=== PATIENT | male | born 1970 | race Caucasian/White ===

== ENCOUNTER 2019-10-17 08:54 | Emergency (ER) | payer MEDICAID ==
[2019-10-17] MEDS ORDERED: Bacitracin Oint 1 GM U/D Packet TOP ONE (09:13)
[2019-10-17] MEDS ORDERED: Lidocaine 1% 20 ML MDV INJECT ONE (09:13)
--- NOTE | 2019-10-17 09:16 | EDM.PDOC ---
ED HPI GENERAL MEDICAL PROBLEM - General Chief Complaint: Laceration Stated Complaint: right hand cut Time Seen by Provider: 10/17/19 09:15 Source of Information: Reports: Patient History Limitations: Reports: No Limitations - History of Present Illness INITIAL COMMENTS - FREE TEXT/NARRATIVE: pt was washing dishes and has a laceration on his rt 5th knuckle. Onset: Today, Sudden Duration: Hour(s): Location: Reports: Upper Extremity, Right Associated Symptoms: Reports: No Other Symptoms - Related Data Allergies Allergy/AdvReac Type Severity Reaction Status Date / Time No Known Allergies Allergy Verified 10/17/19 09:09 Home Meds: Home Meds Albuterol [Proventil HFA] 1 puff INH ASDIRECTED 10/17/19 [History] lisinopriL [Lisinopril] 20 mg PO DAILY 10/17/19 [History] Past Medical History Cardiovascular History: Reports: Hypertension - Past Surgical History HEENT Surgical History: Reports: Naso-Sinus Surgery Musculoskeletal Surgical History: Reports: Shoulder Surgery Social & Family History - Tobacco Use Smoking Status *Q: Never Smoker - Caffeine Use Caffeine Use: Reports: Soda - Recreational Drug Use Recreational Drug Use: Yes Drug Use in Last 12 Months: Yes Recreational Drug Type: Reports: Methamphetamine Other Recreational Drug Type: last used March 01 Recreational Drug Use Frequency: Not Used In Over 6 Months ED ROS GENERAL - Review of Systems Review Of Systems: See Below Constitutional: Reports: No Symptoms HEENT: Reports: No Symptoms Respiratory: Reports: No Symptoms Cardiovascular: Reports: No Symptoms Endocrine: Reports: No Symptoms GI/Abdominal: Reports: No Symptoms : Reports: No Symptoms Musculoskeletal: Reports: Other (laceration on the rt hand. ) Skin: Reports: No Symptoms Neurological: Reports: No Symptoms ED EXAM, SKIN/RASH Exam: See Below Text/Narrative:: pt has a 2 inch laceration on the dorsal aspect of the 5th rt knuckle. This is a flap type laceration. He was washing doshes and cut it on a glass. Exam Limited By: No Limitations General Appearance: Alert, Anxious, Moderate Distress Extremities: Other (pt has a 2 inch laceration on the dorsal portion of the rt 5th knuckle. He has nornal motion and normal sensation. The area was cleansed well and infiltrated with lidocaine. The wound was explored and his tendon was intact. He was nauseated and felt like he was going to pass out. He had o2 added. He is current with his tetanus. The wound was closed with 5-0 chromic and 5-0 prolene. . It was dressed with bacatracin. He had a pressure dressing was applied. ) Course - Vital Signs Last Recorded V/S: Last Vital Signs Temp 36.7 C 10/17/19 09:07 Pulse 68 10/17/19 09:07 Resp 20 10/17/19 09:07 BP 140/96 H 10/17/19 09:07 Pulse Ox 96 10/17/19 09:07 - Orders/Labs/Meds Meds: Medications Discontinued Medications Generic Name Dose Route Start Last Admin Trade Name Freq PRN Reason Stop Dose Admin Bacitracin 1 dose 10/17/19 09:13 10/17/19 09:53 Bacitracin Oint 1 Gm TOP 10/17/19 09:14 1 dose ONETIME ONE Administration Lidocaine HCl 20 ml 10/17/19 09:13 10/17/19 09:53 Xylocaine 1% INJECT 10/17/19 09:14 20 ml ONETIME ONE Administration Departure - Departure Time of Disposition: 09:53 Disposition: Home, Self-Care 01 Condition: Fair Clinical Impression: Laceration - Discharge Information Instructions: Laceration Care, Adult, [id number] Referrals: PCP,None [Primary Care Provider] - Forms: ED Department Discharge Care Plan Goals: keep dry, no further ointments, keep covered suture removal in 7-8 days. Sepsis Event Note - Evaluation Sepsis Screening Result: No Definite Risk - Focused Exam Date Exam was Performed: 10/22/19 Time Exam was Performed: 08:12
== END 2019-10-17 10:10 | disposition home or self-care (01) ==
LOC: JP.ED 08:54
DX: S61.216A Laceration without foreign body of right little finger without damage to nail, initial encounter (principal); W45.8XXA Other foreign body or object entering through skin, initial encounter; I10 Essential (primary) hypertension; Z79.899 Other long term (current) drug therapy
CPT/HCPCS: 12002; 99282; J2001

== ENCOUNTER 2020-02-20 15:52 | Emergency (ER) | payer MEDICAID ==
[2020-02-20] MEDS ORDERED: Lactated Ringers 1,000 ML IV ONE (16:24)
[2020-02-20] MEDS ORDERED: Midazolam 1 MG/ML 2 ML SDV IVPUSH ONE (16:29)
--- NOTE | 2020-02-20 16:35 | EDM.PDOC ---
ED HPI GENERAL MEDICAL PROBLEM - General Chief Complaint: General Stated Complaint: MEDICAL VIA [facility] Time Seen by Provider: 02/20/20 16:25 Source of Information: Reports: EMS History Limitations: Reports: Altered Mental Status, Other (patient unresponsive , no one at residence to provider hx) - History of Present Illness INITIAL COMMENTS - FREE TEXT/NARRATIVE: 49 yo male found unresponsive, naked and cold on a wet floor of the residence he was at. Someone called 911, but when EMS arrived they saw a man running away from the building. Vitals were OK and his BS was just over 200 per EMS. The home he was found in is known to a "meth house". It is not known how long he was on the floor. 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 (see below) (none) - Related Data Allergies Allergy/AdvReac Type Severity Reaction Status Date / Time No Known Allergies Allergy Verified 10/17/19 09:09 Home Meds: Home Meds Albuterol [Proventil HFA] 1 - 2 puff INH Q4H PRN 10/17/19 [History] lisinopriL [Lisinopril] 20 mg PO DAILY 10/17/19 [History] Past Medical History Cardiovascular History: Reports: Hypertension - Past Surgical History HEENT Surgical History: Reports: Naso-Sinus Surgery Musculoskeletal Surgical History: Reports: Shoulder Surgery Social & Family History - Caffeine Use Caffeine Use: Reports: Soda ED ROS GENERAL - Review of Systems Review Of Systems: Unable To Obtain Reason Not Obtained: patient is nonverbal ED EXAM, GENERAL - Physical Exam Exam: See Below Exam Limited By: No Limitations General Appearance: Moderate Distress, Other (nonverbal) Eye Exam: Bilateral Eye: Normal Inspection, PERRL Ears: Normal External Exam, Normal Canal, Hearing Grossly Normal, Normal TMs Ear Exam: Bilateral Ear: Auricle Normal, Canal Normal, TM normal Nose: Normal Inspection, No Blood Throat/Mouth: Normal Inspection, Normal Lips, Normal Oropharynx, No Airway Compromise. No: Normal Voice (nonverbal) Head: Atraumatic, Normocephalic Neck: Normal Inspection Respiratory/Chest: No Respiratory Distress, Lungs Clear, Normal Breath Sounds, No Accessory Muscle Use Cardiovascular: Regular Rate, Rhythm, No Edema, Tachycardia GI/Abdominal: Normal Bowel Sounds, Soft, Non-Tender, No Distention Extremities: Normal Inspection, No Pedal Edema. No: Pedal Edema, Limited Range of Motion, Increased Warmth, Redness Neurological: Unresponsive, Other (doesn't seem to move his R side. Does not look to his R., Glascow Coma scale of 6). No: Normal Cognition Skin Exam: Dry, Intact, Normal Color, No Rash, Cool. No: Warm, Diaphoretic, Ecchymosis, Erythema, Increased Warmth, Jaundice, Lymphangitis, Petechiae, Rash , Wound/Incision, Zoster-Like Rash Course - Vital Signs Last Recorded V/S: Last Vital Signs Temp 34.8 C L 02/20/20 17:39 Pulse 144 H 02/20/20 17:35 Resp 47 H 02/20/20 17:35 BP 113/92 H 02/20/20 17:35 Pulse Ox 99 02/20/20 17:35 - Orders/Labs/Meds Orders: Active Orders 24 hr Category Date Time Status Cardiac Monitoring [RC] .As Directed Care 02/20/20 16:27 Active EKG Documentation Completion [RC] ASDIRECTED Care 02/20/20 16:36 Active Knowles Catheter Insertion [Insert Urinary Catheter] [OM. Care 02/20/20 16:30 Ordered PC] Q24H Urinary Catheter Assessment [RC] ASDIRECTED Care 02/20/20 16:25 Active Warming Measures [Cooling Warming Measures] [RC] Care 02/20/20 16:26 Active ASDIRECTED Chest 1V Frontal [CR] Stat Exams 02/20/20 17:36 Taken Chest 1V Frontal [CR] Stat Exams 02/20/20 17:46 Taken Chest 1V Frontal [CR] Stat Exams 02/20/20 17:47 Taken Diltiazem [Cardizem] 100 mg Med 02/20/20 17:15 Active Sodium Chloride 0.9% [Normal Saline] 100 ml IV TITRATE Fosphenytoin [Cerebyx] 1,500 mg.pe Med 02/20/20 17:29 Active Sodium Chloride 0.9% [Normal Saline] 50 ml IV NOW NS + KCl 20mEq/L [Normal Saline with 20 mEq KCl] 1,000 Med 02/20/20 17:45 Active ml IV ASDIRECTED Potassium Chloride [KCL 20 MEQ in Water 100 ML] 20 meq Med 02/20/20 17:11 Active Premix Bag 1 bag IV ONETIME EKG 12 Lead [EK] Routine Ther 02/20/20 16:35 Ordered Medication Orders Diltiazem HCl 100 mg/ Sodium (Chloride) 100 mls @ 5 mls/hr IV TITRATE MOISE; Protocol Last Admin: 02/20/20 17:28 Dose: 5 mg/hr, 5 mls/hr Potassium Chloride 20 meq/ (Premix) 100 mls @ 50 mls/hr IV ONETIME ONE Stop: 02/20/20 19:10 Last Admin: 02/20/20 17:29 Dose: 50 mls/hr Fosphenytoin Sodium 1,500 mg. (pe/ Sodium Chloride) 80 mls @ 150 mls/hr IV NOW ONE Stop: 02/20/20 17:56 Potassium Chloride/Sodium Chloride (Normal Saline With 20 Meq Kcl) 1,000 mls @ 500 mls/hr IV ASDIRECTED MOISE Labs: Laboratory Tests 02/20/20 02/20/20 02/20/20 Range/Units 16:27 16:27 16:35 WBC 23.6 H (4.5-11.0) K/uL RBC 6.57 H (4.30-5.90) M/uL Hgb 18.9 H* (12.0-15.0) g/dL Hct 56.8 H (40.0-54.0) % MCV 87 (80-98) fL MCH 29 (27-31) pg MCHC 33 (32-36) % Plt Count 373 (150-400) K/uL Puncture Site ABG pH (7.350-7.450) ABG pCO2 (35.0-42.0) mmHg ABG pO2 (75.0-100.0) mmHg ABG HCO3 (22.0-26.0) mmol/L ABG Total CO2 (23.0-27.0) mmol/L ABG O2 Saturation (95.0-98.0) % ABG O2 Content (15.0-23.0) %vol ABG Base Excess mm/L ABG Hemoglobin (13.5-18.0) g/dL ABG Oxyhemoglobin % ABG Carboxyhemoglobin (0.0-1.6) % ABG Methemoglobin % Eduardo Test O2 Delivery Device Oxygen Flow Rate L Sodium (140-148) mmol/L Potassium (3.6-5.2) mmol/L Chloride (100-108) mmol/L Carbon Dioxide (21-32) mmol/L Anion Gap (5.0-14.0) mmol/L BUN (7-18) mg/dL Creatinine (0.8-1.3) mg/dL Est Cr Clr Drug Dosing Estimated GFR (MDRD) (>60) Glucose (74-106) mg/dL Lactic Acid (0.4-2.0) mmol/L Calcium (8.5-10.1) mg/dL Magnesium (1.8-2.4) mg/dL Total Bilirubin (0.2-1.0) mg/dL AST (15-37) U/L ALT (12-78) U/L Alkaline Phosphatase (46-116) U/L Creatine Kinase (39-308) U/L Troponin I (0.000-0.056) ng/mL Total Protein (6.4-8.2) g/dL Albumin (3.4-5.0) g/dL Globulin (2.3-3.5) g/dL Albumin/Globulin Ratio (1.2-2.2) Urine Color Yellow (YELLOW) Urine Appearance Slightly cloudy A (CLEAR) Urine pH 8.5 H (5.0-8.0) Ur Specific [place] 1.020 (1.008-1.030) Urine Protein 100 H (NEGATIVE) mg/dL Urine Glucose (UA) Negative (NEGATIVE) mg/dL Urine Ketones Negative (NEGATIVE) mg/dL Urine Occult Blood Trace-intact H (NEGATIVE) Urine Nitrite Negative (NEGATIVE) Urine Bilirubin Negative (NEGATIVE) Urine Urobilinogen 0.2 (0.2-1.0) EU/dL Ur Leukocyte Esterase Negative (NEGATIVE) Urine RBC 0-5 (0-5) Urine WBC 0-5 (0-5) Ur Epithelial Cells Rare Amorphous Sediment Moderate Urine Bacteria Not seen Urine Mucus Not seen Urine Other Urine Opiates Screen Negative (NEGATIVE) Ur Oxycodone Screen Negative (NEGATIVE) Urine Methadone Screen Negative (NEGATIVE) Ur Propoxyphene Screen Negative (NEGATIVE) Ur Barbiturates Screen Negative (NEGATIVE) Ur Tricyclics Screen Negative (NEGATIVE) Ur Phencyclidine Scrn Negative (NEGATIVE) Ur Amphetamine Screen Presumptive positive H (NEGATIVE) U Methamphetamines Scrn Presumptive positive H (NEGATIVE) Urine MDMA Screen Negative (NEGATIVE) U Benzodiazepines Scrn Negative (NEGATIVE) U Cocaine Metab Screen Negative (NEGATIVE) U Marijuana (THC) Screen Presumptive positive H (NEGATIVE) Ethyl Alcohol mg/dL 02/20/20 02/20/20 02/20/20 Range/Units 16:35 16:35 16:35 WBC (4.5-11.0) K/uL RBC (4.30-5.90) M/uL Hgb (12.0-15.0) g/dL Hct (40.0-54.0) % MCV (80-98) fL MCH (27-31) pg MCHC (32-36) % Plt Count (150-400) K/uL Puncture Site ABG pH (7.350-7.450) ABG pCO2 (35.0-42.0) mmHg ABG pO2 (75.0-100.0) mmHg ABG HCO3 (22.0-26.0) mmol/L ABG Total CO2 (23.0-27.0) mmol/L ABG O2 Saturation (95.0-98.0) % ABG O2 Content (15.0-23.0) %vol ABG Base Excess mm/L ABG Hemoglobin (13.5-18.0) g/dL ABG Oxyhemoglobin % ABG Carboxyhemoglobin (0.0-1.6) % ABG Methemoglobin % Eduardo Test O2 Delivery Device Oxygen Flow Rate L Sodium 169 H* (140-148) mmol/L Potassium 2.6 L* (3.6-5.2) mmol/L Chloride 110 H (100-108) mmol/L Carbon Dioxide > 45 H (21-32) mmol/L Anion Gap 16.6 H (5.0-14.0) mmol/L BUN 23 H (7-18) mg/dL Creatinine 2.4 H (0.8-1.3) mg/dL Est Cr Clr Drug Dosing TNP Estimated GFR (MDRD) 29 L (>60) Glucose 391 H (74-106) mg/dL Lactic Acid (0.4-2.0) mmol/L Calcium 10.0 (8.5-10.1) mg/dL Magnesium (1.8-2.4) mg/dL Total Bilirubin 0.6 (0.2-1.0) mg/dL AST 30 (15-37) U/L ALT 52 (12-78) U/L Alkaline Phosphatase 91 (46-116) U/L Creatine Kinase 233 (39-308) U/L Troponin I < 0.017 (0.000-0.056) ng/mL Total Protein 8.7 H (6.4-8.2) g/dL Albumin 4.4 (3.4-5.0) g/dL Globulin 4.3 H (2.3-3.5) g/dL Albumin/Globulin Ratio 1.0 L (1.2-2.2) Urine Color (YELLOW) Urine Appearance (CLEAR) Urine pH (5.0-8.0) Ur Specific [place] (1.008-1.030) Urine Protein (NEGATIVE) mg/dL Urine Glucose (UA) (NEGATIVE) mg/dL Urine Ketones (NEGATIVE) mg/dL Urine Occult Blood (NEGATIVE) Urine Nitrite (NEGATIVE) Urine Bilirubin (NEGATIVE) Urine Urobilinogen (0.2-1.0) EU/dL Ur Leukocyte Esterase (NEGATIVE) Urine RBC (0-5) Urine WBC (0-5) Ur Epithelial Cells Amorphous Sediment Urine Bacteria Urine Mucus Urine Other Urine Opiates Screen (NEGATIVE) Ur Oxycodone Screen (NEGATIVE) Urine Methadone Screen (NEGATIVE) Ur Propoxyphene Screen (NEGATIVE) Ur Barbiturates Screen (NEGATIVE) Ur Tricyclics Screen (NEGATIVE) Ur Phencyclidine Scrn (NEGATIVE) Ur Amphetamine Screen (NEGATIVE) U Methamphetamines Scrn (NEGATIVE) Urine MDMA Screen (NEGATIVE) U Benzodiazepines Scrn (NEGATIVE) U Cocaine Metab Screen (NEGATIVE) U Marijuana (THC) Screen (NEGATIVE) Ethyl Alcohol < 3 mg/dL 02/20/20 02/20/20 02/20/20 Range/Units 16:35 16:44 17:52 WBC (4.5-11.0) K/uL RBC (4.30-5.90) M/uL Hgb (12.0-15.0) g/dL Hct (40.0-54.0) % MCV (80-98) fL MCH (27-31) pg MCHC (32-36) % Plt Count (150-400) K/uL Puncture Site Lt brachial ABG pH 7.475 H (7.350-7.450) ABG pCO2 62.1 H (35.0-42.0) mmHg ABG pO2 399.0 H (75.0-100.0) mmHg ABG HCO3 45.2 H (22.0-26.0) mmol/L ABG Total CO2 36.3 H (23.0-27.0) mmol/L ABG O2 Saturation 99.8 H (95.0-98.0) % ABG O2 Content 27.2 H (15.0-23.0) %vol ABG Base Excess 16.6 mm/L ABG Hemoglobin 19.0 H (13.5-18.0) g/dL ABG Oxyhemoglobin 98.4 % ABG Carboxyhemoglobin 0.7 (0.0-1.6) % ABG Methemoglobin 0.7 % Eduardo Test N/a O2 Delivery Device Resuscitation bag Oxygen Flow Rate 15.0 L Sodium (140-148) mmol/L Potassium (3.6-5.2) mmol/L Chloride (100-108) mmol/L Carbon Dioxide (21-32) mmol/L Anion Gap (5.0-14.0) mmol/L BUN (7-18) mg/dL Creatinine (0.8-1.3) mg/dL Est Cr Clr Drug Dosing Estimated GFR (MDRD) (>60) Glucose (74-106) mg/dL Lactic Acid 8.6 H (0.4-2.0) mmol/L Calcium (8.5-10.1) mg/dL Magnesium 3.1 H (1.8-2.4) mg/dL Total Bilirubin (0.2-1.0) mg/dL AST (15-37) U/L ALT (12-78) U/L Alkaline Phosphatase (46-116) U/L Creatine Kinase (39-308) U/L Troponin I (0.000-0.056) ng/mL Total Protein (6.4-8.2) g/dL Albumin (3.4-5.0) g/dL Globulin (2.3-3.5) g/dL Albumin/Globulin Ratio (1.2-2.2) Urine Color (YELLOW) Urine Appearance (CLEAR) Urine pH (5.0-8.0) Ur Specific [place] (1.008-1.030) Urine Protein (NEGATIVE) mg/dL Urine Glucose (UA) (NEGATIVE) mg/dL Urine Ketones (NEGATIVE) mg/dL Urine Occult Blood (NEGATIVE) Urine Nitrite (NEGATIVE) Urine Bilirubin (NEGATIVE) Urine Urobilinogen (0.2-1.0) EU/dL Ur Leukocyte Esterase (NEGATIVE) Urine RBC (0-5) Urine WBC (0-5) Ur Epithelial Cells Amorphous Sediment Urine Bacteria Urine Mucus Urine Other Urine Opiates Screen (NEGATIVE) Ur Oxycodone Screen (NEGATIVE) Urine Methadone Screen (NEGATIVE) Ur Propoxyphene Screen (NEGATIVE) Ur Barbiturates Screen (NEGATIVE) Ur Tricyclics Screen (NEGATIVE) Ur Phencyclidine Scrn (NEGATIVE) Ur Amphetamine Screen (NEGATIVE) U Methamphetamines Scrn (NEGATIVE) Urine MDMA Screen (NEGATIVE) U Benzodiazepines Scrn (NEGATIVE) U Cocaine Metab Screen (NEGATIVE) U Marijuana (THC) Screen (NEGATIVE) Ethyl Alcohol mg/dL Meds: Medications Generic Name Dose Route Start Last Admin Trade Name Freq PRN Reason Stop Dose Admin Diltiazem HCl 100 mg/ Sodium 100 mls @ 5 mls/hr 02/20/20 17:15 02/20/20 17:28 Chloride IV 5 mg/hr TITRATE MOISE 5 mls/hr Administration Protocol 5 MG/HR Potassium Chloride 20 meq/ 100 mls @ 50 mls/hr 02/20/20 17:11 02/20/20 17:29 Premix IV 02/20/20 19:10 50 mls/hr ONETIME ONE Administration Fosphenytoin Sodium 1,500 mg. 80 mls @ 150 mls/hr 02/20/20 17:29 pe/ Sodium Chloride IV 02/20/20 17:56 NOW ONE Potassium Chloride/Sodium Chloride 1,000 mls @ 500 mls/hr 02/20/20 17:45 Normal Saline With 20 Meq Kcl IV ASDIRECTED MOISE Discontinued Medications Generic Name Dose Route Start Last Admin Trade Name Freq PRN Reason Stop Dose Admin Adenosine 6 mg 02/20/20 16:46 02/20/20 16:52 Adenocard IVPUSH 02/20/20 16:47 6 mg NOW ONE Administration Adenosine 12 mg 02/20/20 16:55 02/20/20 16:58 Adenocard IVPUSH 02/20/20 16:56 12 mg NOW ONE Administration Diltiazem HCl 20 mg 02/20/20 17:00 02/20/20 17:05 Diltiazem IVPUSH 02/20/20 17:01 20 mg ONETIME ONE Administration Diltiazem HCl 20 mg 02/20/20 17:42 02/20/20 17:47 Diltiazem IVPUSH 02/20/20 17:43 20 mg ONETIME ONE Administration Fosphenytoin Sodium Confirm 02/20/20 17:39 Cerebyx Administered 02/20/20 17:40 Dose 500 mg.pe .ROUTE .STK-MED ONE Lactated Ringer's 1,000 mls @ 1,000 mls/hr 02/20/20 16:24 02/20/20 16:20 Ringers, Lactated IV 02/20/20 17:23 1,000 mls/hr BOLUS ONE Administration Lorazepam 2 mg 02/20/20 17:17 02/20/20 17:21 Ativan IVPUSH 02/20/20 17:18 2 mg ONETIME ONE Administration Lorazepam Confirm 02/20/20 17:19 Ativan Administered 02/20/20 17:20 Dose 2 mg .ROUTE .STK-MED ONE Midazolam HCl 4 mg 02/20/20 16:29 02/20/20 16:35 Versed 1 Mg/Ml IVPUSH 02/20/20 16:30 4 mg ONETIME ONE Administration - Radiology Interpretation Free Text/Narrative:: Head CT scan without contrast- IMPRESSION: Acute subarachnoid hemorrhage mostly concentrated in the posterior fossa. Results discussed with Dr. Friedman at 1655 hours. Dictated by Afshin Gomez MD @ 02/20/2020 4:55:27 PM Chest X-ray- CT Results Date: 02/20/20 CT Results Time: 16:55 - Re-Assessments/Exams Free Text/Narrative Re-Assessment/Exam: 02/20/20 17:01 Adenocard 6 mg IV did nothing, 12 mg IV push converted his rhythm to a sinus rhythm for a few seconds only then he converted right back into a rhythm that looked like SVT. Free Text/Narrative Re-Assessment/Exam: 02/20/20 17:[address] [facility] called for transport. Anesthesia called to intubate for the transfer. Free Text/Narrative Re-Assessment/Exam: 02/20/20 17:32 Insufficient benefit with Ativan 2 mg IV for seizure, will give fosphenytoin 1500 mg IV. 02/20/20 17:41 Intubation per anesthesia with sux and propofol Departure - Departure Time of Disposition: 18:00 Disposition: DC/Tfer to [facility] 02 Clinical Impression: Subarachnoid hemorrhage, Methamphetamine use, Marijuana use, Polycythemia, Hypokalemia, Supraventricular tachycardia, Seferino-Garcia breathing, Hypernatremia, Seizure, Elevated lactic acid level Hypothermia Qualifiers: Encounter type: initial encounter Qualified Code(s): T68.XXXA - Hypothermia, initial encounter - Discharge Information *PRESCRIPTION DRUG MONITORING PROGRAM REVIEWED*: No *COPY OF PRESCRIPTION DRUG MONITORING REPORT IN PATIENT NIDA: No Referrals: PCP,None [Primary Care Provider] - Forms: ED Department Discharge Sepsis Event Note - Focused Exam Vital Signs: Vital Signs Temp Pulse Resp BP Pulse Ox 02/20/20 17:39 34.8 C L 02/20/20 17:35 144 H 47 H 113/92 H 99 02/20/20 17:21 36.3 C 149 H 49 H 105/86 80 L 02/20/20 17:15 99 15 115/64 93 L 02/20/20 17:05 175 H 26 H 120/66 86 L 02/20/20 16:59 183 H 34 H 111/68 92 L 02/20/20 16:34 203 H 31 H 121/83 91 L 02/20/20 16:18 172 H 36 H 132/98 H 94 L 02/20/20 16:05 34.0 C L 183 H 34 H 111/68 86 L 02/20/20 16:02 34.0 C L 136 H 28 H 143/100 H 91 L Date Exam was Performed: 02/20/20 Time Exam was Performed: 17:55 - My Orders Last 24 Hours: My Active Orders 02/20/20 16:25 Urinary Catheter Assessment [RC] ASDIRECTED 02/20/20 16:26 Warming Measures [Cooling Warming Measures] [RC] ASDIRECTED 02/20/20 16:27 Cardiac Monitoring [RC] .As Directed 02/20/20 16:30 Knowles Catheter Insertion [Insert Urinary Catheter] [OM.PC] Q24H 02/20/20 16:35 EKG 12 Lead [EK] Routine 02/20/20 16:36 EKG Documentation Completion [RC] ASDIRECTED 02/20/20 17:11 Potassium Chloride [KCL 20 MEQ in Water 100 ML] 20 meq Premix Bag 1 bag IV ONETIME 02/20/20 17:15 Diltiazem [Cardizem] 100 mg Sodium Chloride 0.9% [Normal Saline] 100 ml IV TITRATE 02/20/20 17:29 Fosphenytoin [Cerebyx] 1,500 mg.pe Sodium Chloride 0.9% [Normal Saline] 50 ml IV NOW 02/20/20 17:36 Chest 1V Frontal [CR] Stat 02/20/20 17:45 NS + KCl 20mEq/L [Normal Saline with 20 mEq KCl] 1,000 ml IV ASDIRECTED 02/20/20 17:46 Chest 1V Frontal [CR] Stat 02/20/20 17:47 Chest 1V Frontal [CR] Stat - Assessment/Plan Last 24 Hours: My Active Orders 02/20/20 16:25 Urinary Catheter Assessment [RC] ASDIRECTED 02/20/20 16:26 Warming Measures [Cooling Warming Measures] [RC] ASDIRECTED 02/20/20 16:27 Cardiac Monitoring [RC] .As Directed 02/20/20 16:30 Knowles Catheter Insertion [Insert Urinary Catheter] [OM.PC] Q24H 02/20/20 16:35 EKG 12 Lead [EK] Routine 02/20/20 16:36 EKG Documentation Completion [RC] ASDIRECTED 02/20/20 17:11 Potassium Chloride [KCL 20 MEQ in Water 100 ML] 20 meq Premix Bag 1 bag IV ONETIME 02/20/20 17:15 Diltiazem [Cardizem] 100 mg Sodium Chloride 0.9% [Normal Saline] 100 ml IV TITRATE 02/20/20 17:29 Fosphenytoin [Cerebyx] 1,500 mg.pe Sodium Chloride 0.9% [Normal Saline] 50 ml IV NOW 02/20/20 17:36 Chest 1V Frontal [CR] Stat 02/20/20 17:45 NS + KCl 20mEq/L [Normal Saline with 20 mEq KCl] 1,000 ml IV ASDIRECTED 02/20/20 17:46 Chest 1V Frontal [CR] Stat 02/20/20 17:47 Chest 1V Frontal [CR] Stat
[2020-02-20] MEDS ORDERED: Adenosine 6 MG/2 ML SDV IVPUSH ONE ×2 (16:46→16:55)
--- NOTE | 2020-02-20 16:55 | CRLCT ---
INDICATION: Right-sided paralysis. Possible CVA. TECHNIQUE: CT head without contrast. COMPARISON: None. FINDINGS: CSF spaces: No hydrocephalus. Brain parenchyma and extra-axial spaces: There is a fair amount of acute subarachnoid hemorrhage concentrated in the posterior fossa but also present in the supratentorial sulci bilaterally. Hemorrhage also extends into the 4th ventricle. No significant mass effect and no midline shift. Skull base and calvarium: The visualized paranasal sinuses and mastoid air cells demonstrate no acute or significant findings. The visualized orbits are grossly unremarkable. No skull fractures. IMPRESSION: Acute subarachnoid hemorrhage mostly concentrated in the posterior fossa. Results discussed with Dr. Friedman at 1655 hours. Dictated by Afshin Gomez MD @ 02/20/2020 4:55:27 PM Please note that all CT scans at this facility use dose modulation, iterative reconstruction, and/or weight-based dosing when appropriate to reduce radiation dose to as low as reasonably achievable. Dictated by: Afshin Gomez MD @ 02/20/2020 16:55:33 (Electronically Signed)
[2020-02-20] MEDS ORDERED: Diltiazem 25 MG/5 ML SDV IVPUSH ONE ×2 (17:00→17:42)
[2020-02-20] MEDS ORDERED: Potassium Chloride 20 MEQ in Premix Bag 1 BAG IV ONE (17:11)
[2020-02-20] MEDS ORDERED: Diltiazem 100 MG in Sodium Chloride 0.9% 100 ML IV SCH (17:15)
[2020-02-20] MEDS ORDERED: LORazepam 2 MG/ML SDV IVPUSH ONE (17:17)
[2020-02-20] MEDS ORDERED: LORazepam 2 MG/ML SDV ONE (17:19)
[2020-02-20] MEDS ORDERED: Fosphenytoin 1,500 MG.PE in Sodium Chloride 0.9% 50 ML IV ONE (17:29)
[2020-02-20] MEDS ORDERED: Fosphenytoin 500 MG.PE/10 ML SDV ONE (17:39)
[2020-02-20] MEDS ORDERED: NS + KCl 20mEq/L 1,000 ML IV SCH (17:45)
[2020-02-20] MEDS ORDERED: Propofol 200 MG/20 ML SDV ONE (18:01)
[2020-02-20] MEDS ORDERED: Succinylcholine 200 MG/10 ML MDV ONE (18:01)
--- NOTE | 2020-02-20 19:49 | ANES ---
DATE OF SERVICE: 02/20/2020 PROCEDURE: Emergency intubation. TECHNIQUE: I was called in this evening by the ER for a gentleman needing emergent intubation. I was at the bedside at approximately 17:30. The patient was unresponsive and having active seizure activity. Heart rate was noted to be in the 190, blood pressure systolically was in the 100s, O2 saturation was approximately 93% to 94% on a non-rebreather mask at about 10 L. Medications were gathered. Equipment was gathered. Prior to induction with medications, I did start ambuing the patient with bag-valve mask at 10 L a minute of oxygen. I then proceeded to give the patient 130 mg of propofol and 100 mg of succinylcholine to get rid of the seizure activity and to loosen his masseter rigidity. Continued to bag the patient through the induction. Shortly after medications were given, I was able to intubate the patient using a MAC 3 blade and placed an 8.0 endotracheal tube without difficulty. Grade 1 view of the cords was noted. No signs of aspiration noted on intubation either. Positive end-tidal CO2 was noted immediately after intubation. Bilateral breath sounds was also noted. ET tube was then secured at approximately 23 at the lip. Chest x-ray was also done and confirmed to be about a centimeter to above the salome. Continued to Ambu the patient until was at the bedside. Systolic pressures did tolerate propofol with his systolic being high 80s over 50s. Heart rate continued to be anywhere from 170 to 190. O2 saturation was 100% immediately after intubation. The patient will be transferred out. Derrick Saeed CRNA /[id number]
--- NOTE | 2020-02-21 10:08 | CR ---
CHEST: Portable 02/20/2020 at 5:46 PM CLINICAL HISTORY:Intubation COMPARISON:None FINDINGS: There is an endotracheal tube in the proximal right mainstem bronchus. Both lungs appear well aerated. Heart size and pulmonary vascularity are normal Impression: Endotracheal tube in the right mainstem bronchus Lungs are clear.
--- NOTE | 2020-02-21 10:11 | CR ---
CHEST: Portable 02/20/2020 at 0547:12 CLINICAL HISTORY:Intubation COMPARISON:Earlier same day FINDINGS: Endotracheal tube is been withdrawn into the distal trachea. It is approximately 1 cm from the salome. Lungs are well aerated. IMPRESSION: Endotracheal tube is been withdrawn into the distal trachea. CHEST: Portable 02/20/2020 at 0547:53 CLINICAL HISTORY:Endotracheal tube placement COMPARISON:Earlier same day FINDINGS: The endotracheal tube is been withdrawn further into the distal trachea. The there is approximately 1.5 cm from the salome. IMPRESSION: Endotracheal tube adjustment as above. Lungs are clear .
== END 2020-02-20 18:32 ==
LOC: JP.ED 15:52
DX: S06.6X9A Traumatic subarachnoid hemorrhage with loss of consciousness of unspecified duration, initial encounter (principal); T68.XXXA Hypothermia, initial encounter; F15.90 Other stimulant use, unspecified, uncomplicated; F12.90 Cannabis use, unspecified, uncomplicated; E87.6 Hypokalemia; R56.9 Unspecified convulsions; I47.1 Supraventricular tachycardia; E87.0 Hyperosmolality and hypernatremia; R74.0 Nonspecific elevation of levels of transaminase and lactic acid dehydrogenase [LDH]; I10 Essential (primary) hypertension; Z79.899 Other long term (current) drug therapy; W19.XXXA Unspecified fall, initial encounter
CPT/HCPCS: 31500; 36415; 36600; 51702; 70450; 71045; 80053; 80305; 80307; 81001; 82550; 82803; 83605; 83735; 84484; 85027; 93005; 96361; 96365; 96368; 96375; 99285; J0153; J0330; J2060; J2250; J2704; J3480; J3490; J7050; J7120; Q2009